=== PATIENT | female | born 1995 | race Caucasian/White ===

== ENCOUNTER 2019-09-06 18:14 | Emergency (ER) | payer MEDICAID ==
[~2019-09-06] VITALS: Ht 167.6 cm; Wt 88.0 kg
[2019-09-06 18:56] VITALS: BP 138/87
[2019-09-06] MEDS ORDERED: ACETAMINOPHEN 325MG TABLET PO ONE (20:30)
== END 2019-09-06 21:37 | disposition home or self-care (01) ==
LOC: ER 18:14
DX: J06.9 Acute upper respiratory infection, unspecified (principal); Z88.6 Allergy status to analgesic agent
CPT/HCPCS: 71045; 99283